=== PATIENT | female | born 1935 | race Caucasian/White ===

== ENCOUNTER → 2016-09-03 | Outpatient (CLI) | payer MEDICARE ==
[2015-08-16 11:15] VITALS: BP 146/67
[~2016-09-03] MED LIST: ALPR1TAB2 PO; CALC3.7S2 NS; DILT60TA PO; DOXY100T PO; ESCI10TA PO; ESTR1TAB15 PO; FLUT1DIS3 INH; FURO40TA4 PO; HYDR-2666 PO; IPRA4AER IH; POTA10TA31 PO; PRED20TA PO; PREG100C PO; PREG50CA PO; PROAIR HFA8.5 GM IH; ROPI1TAB PO; SALM50DI IH
--- NOTE | 2016-09-03 14:30 | RAD ---
Metastatic skeletal survey, 09/03/2016: History: Chronic kidney disease Multiple images of the bony skeleton were obtained with the following findings delineated: 1. There is generalized bony demineralization. 2. A PA view of the chest reveals no rib fracture or destructive lesion. There are scattered parenchymal scars in the lungs. There is aortic atherosclerosis. 2. A lateral view of the skull shows no calvarial abnormality. The patient is edentulous. 3. AP and lateral views of the cervical spine demonstrate moderate degenerative disc disease and spurring at C4-5, C5-6 and C6-7. There are scattered degenerative changes involving the facet joints. No fracture or destructive bony lesion is seen. 4. AP and lateral views of the thoracic and lumbar spine demonstrate mild scattered spurs. There is a minimal scoliosis. No fracture or destructive bony lesion is seen. 5. An AP view of the pelvis reveals no destructive lesion. Mild spurring is present at the hip joints. 6. AP views of both humeri, forearms, femurs and lower legs reveal no fracture or destructive lesion. IMPRESSION: 1. Demineralization. 2. Scattered degenerative changes in the spine. 3. No destructive bony lesion is identified.
== END | disposition home or self-care (01) ==
LOC: RAD 10:20
PROVIDERS: ATTEND Internal Medicine Hematology & Oncology
DX: N18.9 Chronic kidney disease, unspecified (principal); R77.8 Other specified abnormalities of plasma proteins
CPT/HCPCS: 77075

== ENCOUNTER 2016-09-11 08:27 | Outpatient (CLI) | payer MEDICARE ==
[~2016-09-11] VITALS: Ht 170.2 cm; Wt 55.3 kg
[2016-09-11] VITALS (11 sets, daily range): BP systolic 84–142; BP diastolic 46–67
[2016-09-11] MEDS ORDERED: ROPI2TAB4 PO (08:58)
[2016-09-11] MEDS ORDERED: ERGO400T2 PO (08:58)
[2016-09-11] MEDS ORDERED: SUCR1TAB PO (08:58)
[2016-09-11] MEDS ORDERED: PREG75CA PO (08:58)
[2016-09-11] MEDS ORDERED: CYAN2500 SL (08:58)
[2016-09-11] MEDS ORDERED: VENL25TA PO (08:58)
[2016-09-11] MEDS ORDERED: VENTOLIN HFA18 GM INH (08:58)
[2016-09-11] MEDS ORDERED: SALM50DI IH (08:58)
[2016-09-11] MEDS ORDERED: POTA10CA PO (08:58)
[2016-09-11] MEDS ORDERED: MAGN250T5 PO (08:58)
[2016-09-11] MEDS ORDERED: FURO20TA3 PO (08:58)
[2016-09-11] MEDS ORDERED: IPRA4AER IH (08:58)
[2016-09-11] MEDS ORDERED: TRAM50TA PO (08:58)
[2016-09-11] MEDS ORDERED: CALC200T19 PO (08:58)
[2016-09-11] MEDS ORDERED: DILT180C29 PO (08:58)
[2016-09-11 09:18] LABS: BASO # 0.1 x10^3/uL (0.0-0.2); BASO % 1 % (0-3); EOS % 6 % (0-3); HEMATOCRIT 31.2 % (36.0-47.0); HEMOGLOBIN 10.7 g/dL (12.0-15.5); LYMPH # 1.8 x10^3/uL (1.0-4.8); LYMPH % 31 % (24-48); MEAN CORPUSCULAR HEMOGLOBIN 32 pg (25-35); MEAN CORPUSCULAR HGB CONC 34 g/dL (31-37); MEAN CORPUSCULAR VOLUME 95 fL (79-100); MONO % 12 % (0-9); NEUT % 50 % (31-73); PLATELET COUNT 134 x10^3/uL (140-400); RED BLOOD COUNT 3.31 x10^6/uL (3.50-5.40); RED CELL DISTRIBUTION WIDTH 15.5 % (11.5-14.5); WHITE BLOOD COUNT 5.9 x10^3/uL (4.0-11.0)
[2016-09-11 09:27] LABS: INR 1.2 (0.8-1.1); PROTHROMBIN TIME PATIENT 14.6 SEC (11.7-14.0)
[2016-09-11] MEDS ORDERED: LIDOCAINE 1% / SOD BICARB 8.4% 20 ML VIAL. IJ ONE ×2 (09:54→10:45)
[2016-09-11] MEDS ORDERED: MIDAZOLAM HCL/PF 5 MG/5 ML VIAL ONE (10:17)
[2016-09-11] MEDS ORDERED: FENTANYL PF 250 MCG/5 ML VIAL. ONE (10:17)
[2016-09-11] MEDS ORDERED: MIDAZOLAM HCL/PF 5 MG/5 ML VIAL IV ONE (10:45)
[2016-09-11] MEDS ORDERED: FENTANYL PF 250 MCG/5 ML VIAL. IV ONE (10:45)
--- NOTE | 2016-09-11 11:01 | PDOC ---
MODERATE SEDATION ASSESSMENT RISKS/ALTERNATIVES Risks/Alternatives Risks and alternatives of this type of sedation and procedure discussed with: RISK/ALTERNATIVES: Patient H & P ON CHART H & P H & P on chart and reviewed for co-morbid conditions and appropriate labs. H&P ON CHART: Yes STATUS PREG STATUS ASSESSED: N/A MEDS/ALLERGIES REVIEWED Meds/Allergies Reviewed Medications and Allergies including time and route of recently administered narcotics and sedatives. MEDS/ALLERGIES REVIEWED: Yes ASA RATING ASA RATING: II AIRWAY ASSESSMENT Airway Assessment Airway patency, oral function limitations, presence of caps, crowns, dentures, partials, and ability to extend neck assessed. AIRWAY ASSESSMENT: Yes MALLAMPATI SCORE MALLAMPATI SCORE: II PRE-SEDATION ASSESSMENT PRE-SEDATION ASSESSMENT: Yes ROSI OBRIEN MD Sep 11, 2016 11:01
--- NOTE | 2016-09-11 11:03 | PDOC1 ---
History and Physical Date of Procedure Date of Admission 09/11/[address] guided bone marrow asp/bx Indication Indication Abnormal serum protein electrophoresis, with elevated light chains Past Medical History Past Medical History See Nursing Pre procedure PMH Past Surgical History Past Surgical History See Nursing Pre Procedure PSH Current Medications Current Medications Current Medications Lidocaine/Sodium Bicarbonate (Buffered Lidocaine 1%) 20 ml STK-MED ONCE IJ ; Start 09/11/16 at 09:54; Stop 09/11/16 at 09:55; Status DC Midazolam HCl (Versed) 5 mg STK-MED ONCE .ROUTE ; Start 09/11/16 at 10:17; Stop 09/11/16 at 10:18; Status DC Fentanyl Citrate (Fentanyl 5ml Vial) 250 mcg STK-MED ONCE .ROUTE ; Start at 10:17; Stop 09/11/16 at 10:18; Status DC Lidocaine/Sodium Bicarbonate (Buffered Lidocaine 1%) 20 ml 1X ONCE IJ Last administered on 09/11/16t 10:45; Start 09/11/16 at 10:45; Stop 09/11/16 at 10:46 ; Status DC Midazolam HCl (Versed) 5 mg 1X ONCE IV Last administered on 09/11/16t 10:51; Start 09/11/16 at 10:45; Stop 09/11/16 at 10:46; Status DC Fentanyl Citrate (Fentanyl 5ml Vial) 250 mcg 1X ONCE IV Last administered on t 10:50; Start 09/11/16 at 10:45; Stop 09/11/16 at 10:46; Status DC Active Scripts Active Reported Potassium Chloride 10 Meq Capsule.er 10 Meq PO DAILY Venlafaxine Hcl 25 Mg Tablet 25 Mg PO DAILY Tramadol Hcl 50 Mg Tablet 50 Mg PO Q6H PRN Sucralfate 1 Gm Tablet 1 Gm PO DAILY Serevent Diskus (Salmeterol Xinafoate) 50 Mcg Disk.w.dev 50 Mcg IH Q12HR Ropinirole Hcl 2 Mg Tablet 2 Mg PO DAILY Lyrica (Pregabalin) 75 Mg Capsule 75 Mg PO BID Magnesium (Magnesium Oxide) 250 Mg Tablet 250 Mg PO DAILY Combivent Respimat Inhal (Ipratropium/Albuterol Sulfate) 4 Gm Aer.w.adap 2 Inh IH TID Furosemide 20 Mg Tablet 20 Mg PO DAILY Vitamin D2 (Ergocalciferol (Vitamin D2)) 400 Unit Tablet 400 Unit PO DAILY Diltiazem 24HR Cd (Diltiazem Hcl) 180 Mg Cap.er.24h 180 Mg PO DAILY B-12 (Cyanocobalamin (Vitamin B-12)) 2,500 Mcg Lozenge 2,500 Mcg SL DAILY Calcitrate (Calcium Citrate) 200 Mg Tablet 950 Mg PO DAILY Ventolin Hfa Inhaler (Albuterol Sulfate) 18 Gm Hfa.aer.ad 2 Puff INH QID Allergies Allergies: Coded Allergies: No Known Drug Allergies (Unverified , 11/29/14) Physical Exam Vital Signs Vital Signs Date Time Temp Pulse Resp B/P Pulse Ox O2 Delivery O2 Flow Rate FiO2 09/11/16 10:51 69 8 98 Nasal Cannula 2.0 09/11/16 09:18 97.8 142/67 97.8 Lungs: Clear to auscultation Heart: Regular rate Psych/Mental Status: Mental status NL Assessment Assessment Abnl SPEP with elevated light chains Problems: Plan Plan CT guided bone marrow asp/bx ROSI OBRIEN MD Sep 11, 2016 11:03
--- NOTE | 2016-09-11 11:06 | PDOC ---
Exam Manager Transportation Planning Manager Transportation Planning Nancy Podiatric Assistant Podiatric Assistant Lashawn Sutherland Pre-Procedure Diagnosis Pre-Procedure Diagnosis 80 YO female with abnormal SPEP, with elevated light chains Post-Procedure Diagnosis Post-Procedure Diagnosis Same Procedure Performed Procedure Performed CT guided bone marrow aspirate/bx Type of Anesthesia Type of Anesthesia Local + Mod sedation Estimated Blood Loss EBL: Minimal Specimens Specimans 6 cc bone marrow aspirate + 1 11G core bx-----to heme-path Condition of Patient Condition of Patient Stable. Sedated. No apparent complication. Disposition Disposition Home from [facility] post recovery, if no problems. F/u with Dr Echevarria. Full report to follow. ROSI OBRIEN MD Sep 11, 2016 11:06
--- NOTE | 2016-09-12 06:21 | RAD ---
CT-guided power drill assisted bone marrow aspiration and biopsy Indication: 80-year-old female with abnormal serum protein electrophoresis, with elevated light chains. CT-guided bone marrow aspirate/biopsy has been requested by hematology-oncology. Anesthesia: 17 minutes moderate sedation was provided utilizing a total of 2.5 mg Versed and 125 mcg fentanyl, IV. The patient was appropriately monitored by a qualified independent observer throughout the time of moderate sedation. Procedure: Informed consent was obtained from the patient. She was placed prone on the CT scanner. Preliminary noncontrast CT images were obtained through pelvis. A left posterior skin site suitable for CT-guided bone marrow aspirate/biopsy from posterior left iliac bone was selected and marked. That area was prepped and draped in the usual sterile fashion. Conscious sedation was provided with IV Versed and fentanyl. Using aseptic technique, local anesthesia, and CT guidance, and the kontoblick power long haul truck driver, successful percutaneous entry was achieved through posterior cortex of left iliac bone. Approximately 6 cc of bone marrow was promptly aspirated, and was submitted to hematology personnel in the CT suite. Using CT guidance, the [employer] power long haul truck driver was then utilized to obtain a single, 11-gauge core biopsy sample from marrow cavity of left iliac bone. Touch preparations were made from the core biopsy sample, which was then submitted to pathology in formalin. A sterile dressing was applied over the biopsy skin puncture site. Patient tolerated the procedure well without apparent complication. Impression: Successful, uneventful CT-guided bone marrow aspirate and biopsy, utilizing the kontob[employer] power long haul truck driver biopsy system, as described. PQRS compliance statement: One or more of the following individualized dose reduction techniques were utilized for this CT procedure: 1. Automated exposure control. 2. Adjustment of MA and/or KV according to patient size. 3. Iterative reconstruction technique.
== END 2016-09-11 13:21 | disposition home or self-care (01) ==
LOC: INTRAD 08:27
PROVIDERS: ATTEND Internal Medicine Hematology & Oncology
DX: R76.8 Other specified abnormal immunological findings in serum (principal); J44.9 Chronic obstructive pulmonary disease, unspecified; J45.909 Unspecified asthma, uncomplicated; F32.9 Major depressive disorder, single episode, unspecified; F41.9 Anxiety disorder, unspecified; Z90.710 Acquired absence of both cervix and uterus; Z98.890 Other specified postprocedural states
CPT/HCPCS: 36415; 38221; 77012; 85027; 85610; 88184; 88185; 88237; G0364; J2250; J3010

== ENCOUNTER 2016-10-07 19:17 | Inpatient (IN) | payer MEDICARE ==
[~2016-10-07] VITALS: Ht 167.6 cm; Wt 54.0 kg
[~2016-10-07 19:17] MED LIST changes: +CALC200T19 PO; +CYAN2500 SL; +DILT180C29 PO; +ERGO400T2 PO; +FURO20TA3 PO; +MAGN250T5 PO; +POTA10CA PO; +PREG75CA PO; +ROPI2TAB4 PO; +SUCR1TAB PO; +TRAM50TA PO; +VENL25TA PO; +VENTOLIN HFA18 GM INH
--- NOTE | 2016-10-07 19:46 | ED.ADGEN ---
Past Medical History Past Medical History: A-Fib, COPD, Heart Disease, Hypertension, Other Additional Past Medical Histor: Restless leg, chronic bone pain, sleep disorder Past Surgical History: Appendectomy, Cervical Fusion, Hysterectomy, Other Additional Past Surgical Histo: Pancreatic tumor, bowel Alcohol Use: None Drug Use: None Adult General Chief Complaint Chief Complaint: SHORTNESS OF BREATH HPI HPI Patient is a 80 year old female presents emergency department by EMS. She complains of 3-4 hour history of substernal chest pain. She reports it was initially right center of her chest is now radiating more towards the left. She describes it as a sharp and achy" pain. She reports that she has had associated nausea and dyspnea. She denies any diaphoresis. However, she does state that it feels summer to her previous heart attack in 1991. She tells me multiple members of her immediate family have suffered from heart attacks. She did take 3 nitroglycerin earlier this afternoon which helped alleviate her pain temporarily. She denies any other recent illness, cough, fever, chills. She did receive 325 mg of aspirin from EMS prior to arrival. Review of Systems Review of Systems Constitutional: Denies fever or chills. [] Eyes: Denies change in visual acuity. [] HENT: Denies nasal congestion or sore throat. [] Respiratory: Denies cough or shortness of breath. [] Cardiovascular: Denies chest pain or edema. [] GI: Denies abdominal pain, nausea, vomiting, bloody stools or diarrhea. [] : Denies dysuria. [] Musculoskeletal: Denies back pain or joint pain. [] Integument: Denies rash. [] Neurologic: Denies headache, focal weakness or sensory changes. [] Endocrine: Denies polyuria or polydipsia. [] Lymphatic: Denies swollen glands. [] Psychiatric: Denies depression or anxiety. [] Allergies Allergies Allergies Coded Allergies Type Severity Reaction Last Updated Verified No Known Drug Allergies 11/29/14 No Physical Exam Physical Exam Constitutional: Well developed, well nourished, no acute distress, non-toxic appearance. [] HENT: Normocephalic, atraumatic, bilateral external ears normal, oropharynx moist, no oral exudates, nose normal. [] Eyes: PERRLA, EOMI, conjunctiva normal, no discharge. [] Neck: Normal range of motion, no tenderness, supple, no stridor. [] Cardiovascular:Heart rate regular rhythm, no murmur [] Lungs & Thorax: Bilateral breath sounds clear to auscultation [] Abdomen: Bowel sounds normal, soft, no tenderness, no masses, no pulsatile masses. [] Skin: Warm, dry, no erythema, no rash. [] Back: No tenderness, no CVA tenderness. [] Extremities: No tenderness, no cyanosis, no clubbing, ROM intact, no edema. [] Neurologic: Alert and oriented X 3, normal motor function, normal sensory function, no focal deficits noted. [] Psychologic: Affect normal, judgement normal, mood normal. [] Current Patient Data Vital Signs Vital Signs Date Time Temp Pulse Resp B/P Pulse Ox O2 Delivery O2 Flow Rate FiO2 10/07/16 19:21 97.7 76 24 144/67 98 Room Air 97.7 Lab Values Laboratory Tests Test 10/07/16 19:50 White Blood Count 7.6x10^3/uL (4.0-11.0) Red Blood Count 3.14x10^6/uL (3.50-5.40) L Hemoglobin 9.9g/dL (12.0-15.5) L Hematocrit 29.6% (36.0-47.0) L Mean Corpuscular Volume 94fL (79-100) Mean Corpuscular Hemoglobin 32pg (25-35) Mean Corpuscular Hemoglobin Concent 33g/dL (31-37) Red Cell Distribution Width 15.7% (11.5-14.5) H Platelet Count 141x10^3/uL (140-400) Neutrophils (%) (Auto) 47% (31-73) Lymphocytes (%) (Auto) 31% (24-48) Monocytes (%) (Auto) 16% (0-9) H Eosinophils (%) (Auto) 6% (0-3) H Basophils (%) (Auto) 0% (0-3) Neutrophils # (Auto) 3.6x10^3uL (1.8-7.7) Lymphocytes # (Auto) 2.3x10^3/uL (1.0-4.8) Monocytes # (Auto) 1.2x10^3/uL (0.0-1.1) H Eosinophils # (Auto) 0.5x10^3/uL (0.0-0.7) Basophils # (Auto) 0.0x10^3/uL (0.0-0.2) Prothrombin Time 15.0SEC (11.7-14.0) H Prothrombin Time INR 1.3 (0.8-1.1) H PTT 33SEC (24-38) Sodium Level 139mmol/L (136-145) Potassium Level 3.8mmol/L (3.5-5.1) Chloride Level 100mmol/L (98-107) Carbon Dioxide Level 25mmol/L (21-32) Anion Gap 14 (6-14) Blood Urea Nitrogen 43mg/dL (7-20) H Creatinine 1.3mg/dL (0.6-1.0) H Estimated GFR (Cockcroft-Gault) 39.6 Glucose Level 132mg/dL (70-99) H Calcium Level 8.5mg/dL (8.5-10.1) Total Bilirubin 0.3mg/dL (0.2-1.0) Direct Bilirubin 0.1mg/dL (0.0-0.2) Aspartate Amino Transferase (AST) 23U/L (15-37) Alanine Aminotransferase (ALT) 29U/L (14-59) Alkaline Phosphatase 40U/L (46-116) L Troponin I Quantitative < 0.017ng/mL (0.000-0.055) Total Protein 8.3g/dL (6.4-8.2) H Albumin 2.5g/dL (3.4-5.0) L Lipase 53U/L (73-393) L Laboratory Tests 10/07/16 19:50 Laboratory Tests 10/07/16 19:50 EKG EKG EKG interpreted by me, normal sinus rhythm, 75 beats for minute, no ST segment elevation, normal axis. [] Radiology/Procedures Radiology/Procedures Chest x-ray interpreted by me, no acute cardiopulmonary process. [] Course & Med Decision Making Course & Med Decision Making Pertinent Labs and Imaging studies reviewed. (See chart for details) Fortunately, the patient's pain is usually controlled now. Her workup is reassuring. However, given her concerning story and significant risk factors a do believe she will benefit for admission to the hospital for cardiac consultation and serial enzymes. [] Dragon Disclaimer Dragon Disclaimer This electronic medical record was generated, in whole or in part, using a voice recognition dictation system. LEONARDO SARKAR MD Oct 07, 2016 19:46
[2016-10-07 20:17] LABS: BASO % 0 % (0-3); EOS % 6 % (0-3); HEMATOCRIT 29.6 % (36.0-47.0); HEMOGLOBIN 9.9 g/dL (12.0-15.5); LYMPH # 2.3 x10^3/uL (1.0-4.8); LYMPH % 31 % (24-48); MEAN CORPUSCULAR HEMOGLOBIN 32 pg (25-35); MEAN CORPUSCULAR HGB CONC 33 g/dL (31-37); MEAN CORPUSCULAR VOLUME 94 fL (79-100); MONO % 16 % (0-9); NEUT % 47 % (31-73); PLATELET COUNT 141 x10^3/uL (140-400); RED BLOOD COUNT 3.14 x10^6/uL (3.50-5.40); RED CELL DISTRIBUTION WIDTH 15.7 % (11.5-14.5); WHITE BLOOD COUNT 7.6 x10^3/uL (4.0-11.0)
[2016-10-07 20:18] LABS: CALCIUM 8.5 mg/dL (8.5-10.1); CREATININE 1.3 mg/dL (0.6-1.0); GFR 39.6; POTASSIUM 3.8 mmol/L (3.5-5.1)
[2016-10-07 20:24] LABS: ALBUMIN 2.5 g/dL (3.4-5.0); DIRECT BILIRUBIN 0.1 mg/dL (0.0-0.2); TOTAL BILIRUBIN 0.3 mg/dL (0.2-1.0); TOTAL PROTEIN 8.3 g/dL (6.4-8.2)
[2016-10-07 20:25] LABS: INR 1.3 (0.8-1.1)
[2016-10-07] MEDS ORDERED: NITROGLYCERIN SUBLINGUAL 0.4 MG BOTTLE OF 25. SL PRN (21:00)
[2016-10-07] MEDS ORDERED: IPRATRPIUM/ALBUTEROL 0.5/2.5MG 3 ML NEBU. NEB PRN (21:00)
[2016-10-07] MEDS ORDERED: ACETAMINOPHEN 325 MG TABLET. PO PRN (21:00)
[2016-10-07] MEDS ORDERED: FENTANYL PF 100 MCG/2 ML VIAL. IV PRN (21:00)
[2016-10-07] MEDS ORDERED: ONDANSETRON PF 4 MG/2 ML VIAL. IV PRN (21:00)
[2016-10-07] MEDS: IV NORMAL SALINE 1000ML BAG 1,000 ML IV SCH (21:30)
[2016-10-07 22:00] VITALS: BP 126/74
[2016-10-08] VITALS: BP 153/59
--- NOTE | 2016-10-08 02:15 | ACF ---
Admission Forms Criteria GENERAL ADMISSION CRITERIA (Place 'X' for any and all applicable criteria): Admission is indicated for ANY ONE of the following: [ ]I. Hemodynamic instability as indicated by ANY ONE of the following(1)(2) (3)(4)(5): [ ]a) Vital sign abnormality not readily corrected by appropriate treatment within 12 to 24 hours indicated by ANY ONE of the following: [ ]i) Hypotension [ ]ii) Symptomatic Tachycardia unresponsive to treatment (eg , analgesia, fluids, sedation as indicated) [ ]iii) Orthostatic vital sign changes unresponsive to treatment (eg, fluids) [ ]b) Vital sign abnormality that is severe indicated by ANY ONE of the following: [ ]i) Inadequate perfusion indicated by ANY ONE of the following: [ ]1) Lactic acidosis (greater than 2 mmol/L) [ ]2) New abnormal capillary refill (greater than 3 seconds) [ ]3) Other metabolic acidosis (arterial pH less than 7.35) not otherwise explained [ ]4) Reduced urine output [ ]5) Altered mental status [ ]6) Myocardial Ischemia [ ]v) Mean arterial pressure[A] less than 60 mm Hg [ ]vi) Mean arterial pressure[A] less than 70 mm Hg after 30 minutes of appropriate treatment (eg, fluid resuscitation) [ ]vii) IV inotropic or vasopressor medication required to maintain adequate blood pressure or perfusion [ ]viii) Sustained heart rate greater than 120 beats per minute in adult or child 6 years or older[B]] [ ]II. Hypertension requiring inpatient treatment as indicated by ANY ONE of the following(6)(7)(8): [ ]a) SBP greater than 220 mm Hg or DBP greater than 120 mm Hg despite treatment [ ]b) SBP greater than 140 mm Hg or DBP greater than 100 mm Hg with evidence of acute end organ damage as indicated by ANY ONE of the following: [ ]i) Encephalopathy [ ]ii) Acute renal failure as indicated by new onset of ANY ONE of the following(9)(10)(11)(12)(13): [ ]1) A 3-fold rise in serum creatinine from baseline [ ]2) Serum creatinine greater than 4 mg/dL ( 354 micromoles/L) with acute rise greater than 0.5 mg/dL (44.2 micromoles/L) [ ]3) Reduction of more than 75% in estimated glomerular filtration rate from baseline [ ]4) Estimated glomerular filtration rate less than 35 mL/min/1.73m2 (0.59 mL/sec/1.73m2) in child up to 18 years of age [ ]5) Cessation of urine output indicated by ALL of the following: [ ]A. Adequate volume status [ ]B. Inadequate urine output as indicated by ANY ONE of the following: [ ]a. Urine output less than 0.3 mL/kg/hr for 24 hours [ ]b. Anuria (urine output less than 0.1 mL/kg/hr) for 12 hours [ ]iii) Aortic dissection [ ]iv) Myocardial ischemia [ ]v) Left ventricular heart failure [ ]vi) Retinal hemorrhage [ ]vii) Other significant finding [ ]c) Hypertension in child requiring inpatient treatment as indicated by ALL of the following(14)(15)(16): [ ]i) Outpatient treatment not effective, not available, or not appropriate [ ]ii) SBP or DBP greater than 95th percentile for age [ ]iii) Evidence of acute end organ damage as indicated by ANY ONE of the following: [ ]1) Altered mental status [ ]2) Acute renal failure as indicated by new onset of ANY ONE of the following(9)(10)(11)(12)(13): [ ]A. A 3-fold rise in serum creatinine from baseline [ ]B. Serum creatinine greater than 4 mg/dL (354 micromoles/L) with acute rise greater than 0.5 mg/dL (44.2 micromoles/L) [ ]C. Reduction of more than 75% in estimated glomerular filtration rate from baseline [ ]D. Estimated glomerular filtration rate less than 35 mL/min/1.73m2 (0.59 mL/sec/1.73m2)in child up to 18 years of age [ ]E. Cessation of urine output indicated by ALL of the following: [ ]a. Adequate volume status [ ]b. Inadequate urine output as indicated by ANY ONE of the following: [ ]1) Urine output less than 0.3 mL/kg/hr for 24 hours [ ]2) Anuria (urine output less than 0.1 mL/kg/hr) for 12 hours [ ]3) Severe headache [ ]4) Visual disturbance [ ]5) Retinal hemorrhage [ ]6) Other significant finding [ ]III. Acute cardiac or peripheral ischemia as indicated by ANY ONE of the following: [ ]a) Acute coronary syndrome(17)(18) [ ]b) Acute peripheral ischemia (eg, pulseless, cool, mottled, or cyanotic extremity)(19) [ ]IV. Cardiac arrhythmias or findings of immediate concern indicated by ANY ONE of the following(20)(21): [ ]a) Heart rhythms that are inherently dangerous or unstable indicated by ANY ONE of the following(22)(23)(24): [ ]i) Resuscitated ventricular fibrillation or cardiac arrest [ ]ii) Ventricular escape rhythm [ ]iii) Sustained ventricular tachycardia (30 seconds or more of ventricular rhythm at greater than 100 beats per minute) [ ]iv) Nonsustained ventricular tachycardia and ANY ONE of the following: [ ]1) Suspected cardiac ischemia as cause or consequence of ventricular tachycardia [ ]2) In setting of acute myocarditis [ ]b) Unstable cardiac conduction defects indicated by ANY ONE of the following(24)(25)(26): [ ]i) Type II second-degree atrioventricular block [ ]ii) Third-degree atrioventricular block [ ]iii) New-onset left bundle branch block with suspected myocardial ischemia [ ]c) Any heart rhythm and ANY ONE of the following(22)(23)(27)(28)( 29): [ ] i) Continuous long-term ECG monitoring needed (eg, initiation of drug requiring monitoring for more than 24 hours) [ ] ii) Patient has automatic implanted cardioverter defibrillator that is repeatedly firing, malfunctioning, or in need of immediate adjustment of settings beyond the scope of ambulatory or observation care. [ ]d) Heart rhythms of concern due to ANY ONE of the following: [ ]i) Hypotension [ ]ii) Respiratory distress [ ]iii) Association with other significant symptoms (eg, bradycardia with syncope or ongoing dizziness, supraventricular tachycardia with chest pain) (27)(28) (30) [ ] V. Severe heart failure as indicated by ANY ONE of the following ( 31)(32): [ ]a) Respiratory distress [ ]b) Hypotension [ ]c) Anasarca (refractory to outpatient therapy) [ ]d) Cardiac arrhythmias of immediate concern [ ]e) Myocardial ischemia [ ]. Respiratory abnormalities, including ANY ONE of the following(33)(34) (35)(36): [ ]a) Respiratory rate greater than 30 breaths per minute unresponsive to treatment [A] [ ]b) New saturation of arterial oxygen less than 90% [ ]c) New partial pressure of carbon dioxide greater than 44 mm Hg ( 5.9 kPa) [ ]d) Supplemental oxygen or respiratory treatments needed that are new or not performable at other levels of care [ ]e) New-onset cyanosis [ ]f) Inability to protect airway [ ]g) Chronic lung disease with severe deterioration (not responsive to emergency and observation care treatment as appropriate) as indicated by ANY ONE of the following(34)(36 ): [ ]i) SaO2 5% below baseline in patient with chronic hypoxemia [ ]ii) New requirement for supplemental oxygen to keep SaO2 at baseline or acceptable level [ ]iii) Required supplemental oxygen performable only in acute inpatient setting [ ]iv) Severe airflow or ventilation abnormalities [ ]v) Previously mobile patient unable to walk between rooms [ ]vi Inability to eat or sleep due to dyspnea [ ]vii) Rapid rate of exacerbation onset [ ]viii) Altered mental status ]VII. Severe airflow or ventilation abnormalities (not responsive to emergency and observation care treatment as appropriate) as indicated by ANY ONE of the following(33)(34)(35)(37): [ ]a) PCO2 greater than 42 mm Hg (5.6 kPa) and pH less than 7.35 (new ) [ ]b) Documented PCO2 increased more than 5 mm Hg (0.7 kPa) from disease baseline [ ]c) Airflow measurements [B] less than 60% of previous best or predicted (eg, peak expiratory flow rate less than 300 L/minute) despite intensive emergent treatment [C] [ ]d) Required respiratory treatments that are performable only in acute inpatient setting [ ]VIII. Impending or actual respiratory arrest ( Also use Respiratory Failure GRG for severe respiratory disease and long-term mechanical ventilation patients) [ ]IX. Neurologic abnormalities, including ANY ONE of the following: [ ]a) New findings that suggest ANY ONE of the following: [ ]i) BUSINESS CONTINUITY PLANNING DIRECTOR infection(38) [ ]ii) Cerebral bleeding, ischemia, or vasospasm(39)(40) [ ]iii) Increased intracranial pressure, hydrocephalus, or cerebral edema(41)(42)(43) [ ]iv) Spinal cord injury(44) [ ]b) Uncontrolled seizures(45) [ ]c) New-onset coma (eg, Frankie coma scale score less than 9) or unexplained abnormal mental status (eg, Frankie coma scale score less than 14) [D](41)(46)(47) [ ]X. New-onset severe neurologic findings requiring inpatient care; examples include(42)(48)(49): [ ]a) Papilledema [ ]b) Cerebral edema [ ]c) Mass effect on CT scan [ ]XI. Suspected acute intra-abdominal process with peritoneal signs, abdominal mass, or similar findings (50)(51)(52) [ ]XII. Severe physiologic disorder remaining after emergency or observation level care (as appropriate) as indicated by ANY ONE of the following (53): [ ]a) Significant dehydration [ ]b) Diabetic ketoacidosis [ ]c) Hyperglycemic hyperosmolar state (eg, osmolality greater than 320 mOsm/kg (mmol/kg) [ ]d) Hypoglycemia [ ]e) Other (new) acid-base disorder with pH less than 7.35 or greater than 7.5(54) [ ]f) Thyroid storm (55) [ ]g) Myxedema coma (55) [ ]XIII. Abdominal abnormalities with ANY ONE of the following(56)(57): [ ]a) Absent bowel sounds with complete ileus [ ]b) Signs of intestinal obstruction or peritonitis [E] [ ]c) Nausea and vomiting that cannot be controlled with outpatient or observation care [ ]XIV. Acute renal failure as indicated by new onset of ANY ONE of the following(9)(10)(11)(12)(13): [ ]a) A 3-fold rise in serum creatinine from baseline [ ]b) Serum creatinine greater than 4 mg/dL (354 micromoles/L) with acute rise greater than 0.5 mg/dL (44.2 micromoles/L) [ ]c) Reduction of more than 75% in estimated glomerular filtration rate from baseline [ ]d) Estimated glomerular filtration rate less than 35 mL/min/ 1.73m2 (0.59 mL/sec/1.73m2) in child up to 18 years of age [ ]e) Cessation of urine output indicated by ALL of the following: [ ]i) Adequate volume status [ ]ii) Inadequate urine output as indicated by ANY ONE of the following: [ ]1) Urine output less than 0.3 mL/kg/hr for 24 hours [ ]2) Anuria (urine output less than 0.1 mL/kg/hr) for 12 hours [ ]XV. Significant uremic complications as indicated by ANY ONE of the following(58)(59)(60): [ ]a) Outpatient therapy is ineffective or not feasible for ANY ONE of the following: [ ]i) Severe heart failure [ ]ii) Severehypertension [ ]iii) Pleural effusion [ ]iv) Pericarditis or pericardial effusion [ ]b) Cardiac arrhythmias of immediate concern [ ]c) Intractable nausea or vomiting [ ]d) Recurrent seizures [ ]e) Encephalopathy [ ]f) Bleeding abnormalities (eg, platelet dysfunction) with active (eg, gastrointestinal) bleeding [ ]g) Dialysis indicated before long-term access or ambulatory arrangements can be made [ ]h) Significant metabolic or electrolyte abnormalities (eg, severe acidosis or hyperkalemia) [ ]XVI. High fever or other high-risk infection situation as indicated by ANY ONE of the following(61)(62)(63)(64): [ ]a) Outpatient and observation care antimicrobial treatment unavailable, not effective, or not appropriate [ ]b) Documented bacteremia [ ]c) Temperature greater than 40.5 degrees C (104.9 degrees F) ( oral) [ ]d) Temperature greater than 39.5 degrees C (103.1 degrees F) ( oral) or less than 36 degrees C (96.8 degrees F) (rectal) that does not respond to e treatment and observation care [ ] XVII. Temperature less than 95 degrees F (35 degrees C)(rectal)(65) [ ] XVIII. Severe nutritional abnormalities as indicated by ALL of the following (66)(67): [ ]a) Inability to tolerate or establish sufficient oral or other enteral nutrition in outpatient setting [ ]b) Parenteral nutrition regimen need that must be implemented on inpatient basis [ ] XIX. Severe electrolyte abnormalities indicated by ALL of the following(68) (69)(70): [ ]a) Electrolytes and associated findings are not as expected for patient baseline or acceptable treatment effects. [ ]b) Severe abnormalities indicated by ANY ONE of the following: [ ]i) Sodium less than 130 mEq/L (mmol/L) (new) [ ]ii)Sodium less than 135 mEq/L (mmol/L) with ANY ONE of the following: [ ]1) Uncorrectable (to near normal or chronic baseline) after trial of outpatient and emergency treatment [ ]2) Altered mental status [ ]3) Seizures [ ]4) Severe medical etiology requiring inpatient management (eg, heart failure, hypovolemia) [ ]iii) Sodium greater than 155 mEq/L (mmol/L) [ ]iv) Sodium greater than 150 mEq/L (mmol/L) with ANY ONE of the following: [ ]1) Uncorrectable (to near normal or chronic baseline) with outpatient and emergency treatment [ ]2) Altered mental status [ ]3) Seizures [ ]4) Severe medical etiology (eg, hypovolemia, diabetes insipidus) [ ]v) Potassium less than 2.5 mEq/L (mmol/L) despite outpatient and emergency treatment [ ]vi) Potassium less than 3 mEq/L (mmol/L) with ANY ONE of the following: [ ]1) Weakness [ ]2) Cardiac abnormality (eg, arrhythmia, conduction disturbance) [ ]3) Cardiac ischemia [ ]4) Ileus [ ]5) Ongoing medical cause requiring inpatient management (eg, acute renal wasting or SIADH) [ ]6) Other severe symptoms [ ]vii) Potassium greater than 6.5 mEq/L (mmol/L) [ ]viii) Potassium greater than 5 mEq/L (mmol/L) with ANY ONE of the following: [ ]1) Uncorrectable (to near normal or chronic baseline) with outpatient and emergency treatment [ ]2) Severe ECG findings [F] [ ]3) Acute worsening of renal failure (creatinine greater than 2.5 mg/dL (221 micromoles/L) or significant elevation for age and size) [ ]4) Severe weakness [ ]5) Severe medical etiology (eg, hemolysis, infection, drug overdose) [ ]ix) Calcium less than 7 mg/dL (1.75 mmol/L) despite outpatient and emergency treatment (72) [ ]x) Calcium less than 8 mg/dL (2 mmol/L) with significant symptoms or findings; examples include(72): [ ]1) Altered mental status [ ]2) Muscle spasms [ ]3) Seizures [ ]4) Breathing difficulty [ ]5) Cardiac abnormality (eg, arrhythmia or conduction disturbance) [ ]xi) Calcium greater than 14 mg/dL (3.5 mmol/L)(72) [ ]xii) Calcium greater than 12 mg/dL (3 mmol/L) with ANY ONE of the following(72): [ ]1) Uncorrectable (to near normal or chronic baseline) with outpatient and emergency treatment [ ]2) Significant dehydration or hypovolemia as indicated by ALL of the following(70)(73)(74): [ ]A. Not resolved with initial treatments [ ]B. Clinically significant dehydration as indicated by ANY ONE of the following: [ ]a. Vomiting refractory to outpatient treatment (ie, precluding oral rehydration) [ ]b. Inability to drink [ ]c. Hypernatremia or other electrolyte abnormality unable to be corrected with outpatient and emergency treatment [ ]d. Failure to remain hydrated with outpatient therapy [ ]e. Reduced urine output [ ]f. Hypotension [ ]g. Serious cause for dehydration requiring acute hospitalization (eg, bowel obstruction, increased intracranial pressure, infectious cause) [ ]h. Child with ANY ONE of the following(75): [ ]1) Severe abdominal tenderness [ ]2) Adequate care not available at home [ ]3) Severe dehydration ( greater than 9% loss of body weight) [ ]4) Significant symptoms or findings; examples include: [ ]A. Altered mental status [ ]B. Cardiac abnormality (eg, arrhythmia, conduction disturbance) [ ]C. Malignant etiology requiring inpatient treatment [ ]xiii) Phosphorus less than 1 mg/dL (0.32 mmol/L) [ ]xiv) Phosphorus less than 1.5 mg/dL (0.48 mmol/L) with ANY ONE of the following: [ ]1) Patient unresponsive to outpatient and emergency treatment [ ]2) Significant symptoms or findings; examples include: [ ]A. Weakness [ ]B. Altered mental status [ ]C. Breathing difficulty [ ]D. Seizures [ ]E. Rhabdomyolysis [ ]xv) Phosphorus greater than 10 mg/dL (3.2 mmol/L) [ ]xvi) Phosphorus greater than 4.5 mg/dL (1.45 mmol/L) (new) with ANY ONE of the following: [ ]1) Severe medical etiology (eg, crush injury, acute renal failure) [ ]2) Associated hypocalcemia with significant findings; examples include: [ ]A. Neurologic symptoms [ ]B. Altered mental status [ ]C. Muscle spasms [ ]D. Seizures [ ]E. Breathing difficulty [ ]F. Cardiac abnormality (eg, arrhythmia, conduction disturbance) [ ]xvii) Magnesium less than 1 mg/dL (0.41 mmol/L) [ ]xviii) Magnesium less than 1.5 mg/dL (0.62 mmol/L) with ANY ONE of the following: [ ]1) Patient unresponsive to outpatient and emergency treatment [ ]2) Associated hypocalcemia with significant findings; examples include: [ ]A. Altered mental status [ ]B. Muscle spasms [ ]C. Seizures [ ]D. Breathing difficulty [ ]E. Cardiac abnormality (eg, arrhythmia , conduction disturbance) [ ]3) Associated hypokalemia (potassium less than 3 mEq/L (mmol/L)) with risk of arrhythmia [ ]xix) Magnesium greater than 4 mEq/L (2 mmol/L) [ ]xx) Magnesium greater than 2.5 mEq/L (1.25 mmol/L) with significant symptoms or findings; examples include: [ ]1) Weakness [ ]2) Altered mental status [ ]3) Cardiac abnormality (eg, arrhythmia, conduction disturbance) [ ]4) Breathing difficulty [ ]5) Severe medical etiology (eg, renal failure, hypovolemia) [ ]xxi) Uric acid greater than 20 mg/dL (1190 micromoles/L)(76) [ ]xxii) Uric acid greater than 8 mg/dL (476 micromoles/L) with significant symptoms or findings of tumor lysis syndrome; examples include(76): [ ]1) Creatinine greater than 1.5 times upper limit of normal [ ]2) Cardiac abnormality (eg, arrhythmia, conduction disturbance) [ ]3) Seizure [ ]XX. Acute blood loss causing significant abnormality as indicated by ANY ONE of the following(77)(78): [ ]a) Hemoglobin less than 10 g/dL (100 g/L) (not baseline) [ ]b) Hematocrit less than 30% (0.30) (not baseline) [ ]c) Repeat hematocrit decreased more than 2% (0.02) [ ]d) Uncontrolled bleeding [ ]XXI. Severe anemia indicated by ANY ONE of the following(78)(79): [ ]a) Altered mental status [ ]b) Chest pain [ ]c) Exertional dyspnea [ ]d) Syncope [ ]e) Other findings suggesting inadequate perfusion [ ]f) Treatment with transfusion or volume replacement is ineffective at resolving ANY ONE of the following [G]: [ ]i) Tachycardia for age [ ]ii) Orthostatic vital sign changes as indicated by ANY ONE of the following(80): [ ]1) Fall in SBP of 20 mm Hg or more 1 to 3 minutes after patient sits or stands from recumbent position [ ]2) Fall in DBP of 10 mm Hg or more 1 to 3 minutes after patient sits or stands from recumbent position [ ]XXII. High-risk low platelet count as indicated by ANY ONE of the following( 81)(82): [ ]a) Severe or life-threatening bleeding (eg, intracranial, major gastrointestinal, or extensive mucosal bleeding), with any reduced platelet count [ ]b) Platelet count less than 20,000/mm3 (20 x109/L) with any active bleeding [ ]c) Platelet count less than 10,000/mm3 (10 x109/L) with minor purpura or petechiae [ ]d) Platelet count less than 5000/mm3 (5 x109/L) [ ]e) Low platelet count with hemolytic anemia [ ]XXIII. Disseminated intravascular coagulation(77)(83) [ ]XXIV. Severe adverse drug or systemic toxin reaction requiring inpatient treatment; examples include(84)(85): [ ]a) Serotonin syndrome(86) [ ]b) Neuroleptic malignant syndrome(86) [ ]c) Cholinergic syndrome with severe symptoms (eg, bronchorrhea, weakness, mental status changes, seizures) [ ]d) Sympathetic syndrome with severe symptoms (eg, seizures, mental status changes, cardiac dysrhythmias) [ ]e) Anticholinergic syndrome [ ]XXV. Severe pain requiring acute inpatient management as indicated by ALL of the following (87)(88)(89): [ ]a) Continuous or frequent (eg, every 2 to 4 hours) parenteral analgesics required [H] [ ]b) Rapid improvement expected from treatment or acute intervention (eg, surgery, anesthesia procedure) [ ]XXVI.Severe behavioral health issues judged unmanageable at a lower level of care (eg, residential) in a patient who is ANY ONE of the following(91) [ ]a) Acutely suicidal [ ]b) A danger to self (eg, self-mutilating or suicidal behavior) [ ]c) A danger to others (eg, assaultive or homicidal behavior) [ ]d) Incapacitated because of grave disability (eg, inability to provide for self at lower level of care) (92) [X]XXVII. Inpatient monitoring needed; examples include(1)(3)(87)(93)(94)(95)(96 ): [ ]a) Vital signs, neurologic signs, or vascular checks more frequently than every 4 hours [X]b) Cardiac or respiratory monitoring beyond the scope (eg, over 24 hours) of observation care [ ]c) Pulmonary artery catheter monitoring [ ]d) Suspected compartment syndrome(97) (98) [ ]e) Cerebral bleeding, hydrocephalus, or vasospasm monitoring [ ]f) Increased intracranial pressure or cerebral edema monitoring [ ]g) monitoring [ ]XXVIII. Treatment requiring inpatient care; examples include: [ ]a) IV fluid to replace significant ongoing losses (greater than 3 L/m2 per day)(53) [ ]b) High concentration oxygen (greater than 40%)(33)(99)(100) [ ]c) Frequent respiratory therapy (more frequently than every 4 hours) to maintain airflow rates greater than 60% of baseline(33)(99)(100) [ ]d) Epidural analgesia(87) [ ]e) IV anticoagulation, vasoactive, or antiarrhythmic medication(19 )(23) [ ]f) Acute thrombolytics (generally require 24 hours of observation )(101)(102) [ ]XXIX. Emergency procedures needed; examples include: [ ]a) Emergency inpatient surgery [ ]b) Temporary pacemaker placement(103) [ ]c) Chest tube placement with active evacuation (eg, suction, drainage)(104) [ ]d) Emergent cardioversion(105) [ ]e) Emergent cardiac or vascular procedures (eg, cardiac catheterization, angioplasty) (17)(18) [ ]f) Emergent dialysis access placement and institution(10)(106) [ ]g) Emergent pericardiocentesis(107) [ ]h) Emergent plasmapheresis or leukapheresis(83) [ ]i) Emergent tracheostomy The original [employer] content created by [employer] has been revised. The portions of the content which have been revised are identified through the use of italic text or in bold, and [facility] has neither reviewed nor approved the modified material. All other unmodified content is copyright [employer]. Please see references footnoted in the original [employer] includes the [email or web address] edition 2016 Admission Criteria Met?: Yes EMMA DALE Oct 08, 2016 02:15
[2016-10-08 04:00] VITALS: BP 142/65
[2016-10-08 04:56] LABS: BASO % 1 % (0-3); EOS % 9 % (0-3); LYMPH # 2.5 x10^3/uL (1.0-4.8); LYMPH % 34 % (24-48); MEAN CORPUSCULAR HEMOGLOBIN 32 pg (25-35); MEAN CORPUSCULAR HGB CONC 33 g/dL (31-37); MEAN CORPUSCULAR VOLUME 95 fL (79-100); MONO % 14 % (0-9); NEUT % 43 % (31-73); PLATELET COUNT 142 x10^3/uL (140-400); RED BLOOD COUNT 3.14 x10^6/uL (3.50-5.40); RED CELL DISTRIBUTION WIDTH 15.5 % (11.5-14.5); WHITE BLOOD COUNT 7.4 x10^3/uL (4.0-11.0)
[2016-10-08 05:01] LABS: CALCIUM 8.5 mg/dL (8.5-10.1); CREATININE 1.1 mg/dL (0.6-1.0)
--- NOTE | 2016-10-08 06:22 | EKG ---
[facility] [address] [place] [id number] Test Date: 2016-10-07 Test Time: 19:23:51 Pat Name: JOHNNY GÓMEZ Department: Room: [facility] Gender: F Mechanical Systems Control Engineer: : [id number] Requested By: LEONARDO SARKAR Order Number: [id number] Reading MD: Shahzad Richardson Measurements Intervals [place] Rate: 75 P: 53 [place]: 132 QRS: 38 QRSD: 80 T: 49 QT: 408 QTc: 458 Interpretive Statements SINUS RHYTHM NORMAL ECG RI6.01 Unconfirmed report No previous ECG available for comparison Electronically Signed On 10-15-2016 10:23:47 INSPECTOR TYPE by Shahzad Richardson
[2016-10-08 08:00] VITALS: BP 139/61
--- NOTE | 2016-10-08 08:06 | RAD ---
Portable chest, 10/07/2016: History: Left-sided chest pain Comparison is made to a study from 09/03/2016. The heart size is normal. There is calcific plaquing and tortuosity of the thoracic aorta. There are prominent pulmonary markings probably due to fibrosis. No pulmonary consolidation is seen. There is no evidence of pleural fluid. The bony structures are demineralized. IMPRESSION: 1. Chronic prominence of the pulmonary markings compatible with fibrosis. 2. No new cardiopulmonary is detected.
[2016-10-08] MEDS: IV NORMAL SALINE 1000ML BAG 1,000 ML IV SCH (09:18)
--- NOTE | 2016-10-08 10:04 | PDOC2 ---
ASHIA GRADY DISINTEGRATOR 10/08/16 1004: CARDIAC CONSULT DATE OF CONSULT Date of Consult DATE: 10/08/16 TIME: 09:55 REASON FOR CONSULT Reason for Consult: angina REFERRING PHYSICIAN Referring Physician: Dr. Arora SOURCE Source: Chart review, Patient HISTORY OF PRESENT ILLNESS HISTORY OF PRESENT ILLNESS This is a 80 yo female who presented with complaints of chest pain. Difficult to obtain HPI as patient is quite upset and tearful at this time. Patient reports previous PCP, who she no longer follows with, came to round this morning and it was very upsetting because "he failed me after 17 years". Patient reports pain began yesterday afternoon while she was sitting watching television. Located in her left chest. describes as pressure. Pain felt very similar to "two previous heart attacks". Pain radiated up to the jaw. Associated with nausea, shortness of breath, and diaphoresis. Denies any dizziness, orthopnea, LE edema, or recent illness or fevers. EMS was called. Pain relieved with nitro after about 30 mins. Recently diagnosed with multiple myeloma and follows with Dr. Echevarria. Reports previous heart cath with angioplasty , but is not aware of any stent placement. Most recent stress test over 5 years ago. PAST MEDICAL HISTORY Cardiovascular: AFIB, CAD, HTN, [place] Pulmonary: Asthma, COPD CENTRAL NERVOUS SYSTEM: Periperal neuropathy GI: Diverticulosis, GERD, Peptic Ulcer disease Heme/Onc: Anemia NOS, Other (DVT) Hepatobiliary: No pertinent hx Psych: Anxiety, Depression Musculoskeletal: Osteoarthritis Rheumatologic: No pertinent hx Infectious disease: No pertinent hx ENT: No pertinent hx Renal/: No pertinent hx Endocrine: No pertinent hx Dermatology: No pertinent hx PAST SURGICAL HISTORY Past Surgical History: Appendectomy, Cataract Removal, Hysterectomy, Other ( back sx) FAMILY HISTORY Family History: Cancer, Diabetes, Heart Disease SOCIAL HISTORY Smoke: Quit (6 months ago) ALCOHOL: none Drugs: None Lives: Alone CURRENT MEDICATIONS CURRENT MEDICATIONS Current Medications Medications (Trade) Dose Ordered Sig/Tianna Route PRN Reason Start Time Stop Time Status Last Admin Dose Admin Sodium Chloride (Iv Sodium Chloride 0.9% 1000ml Bag) 1,000 ml @ 80 mls/hr [id number] IV 10/07/16 20:48 10/08/16 20:47 10/07/16 21:30 Albuterol/ Ipratropium (Duoneb) 3 ml RTQID PRN NEB SHORTNESS OF BREATH 10/07/16 21:00 10/08/16 20:59 10/08/16 09:14 ALLERGIES ALLERGIES: Coded Allergies: No Known Drug Allergies (Unverified , 11/29/14) ROS Review of System 14 point ROS conducted with pertinent hx noted above in HPI PHYSICAL EXAM General: Alert, Oriented X3, Cooperative, No acute distress, Other (anxious, tearful) HEENT: Atraumatic, Mucous membr. moist/pink Lungs: Clear to auscultation, Normal air movement Heart: Regular rate, Normal S1, Normal S2 Abdomen: Soft, No tenderness Extremities: Other (refused to have feel assessed ) Skin: No breakdown Neuro: Normal speech, Sensation intact Psych/Mental Status: Mental status NL, Other (tearful) MUSCULOSKELETAL: Osteoarthritic changes both hands VITALS VITALS Vital Signs Date Time Temp Pulse Resp B/P Pulse Ox O2 Delivery O2 Flow Rate FiO2 10/08/16 09:14 95 Room Air 10/08/16 08:00 97.9 69 16 139/61 97.9 LABS Lab: Laboratory Tests Test 10/07/16 19:50 10/08/16 03:00 10/08/16 04:54 10/08/16 08:45 White Blood Count 7.6x10^3/uL (4.0-11.0) 7.4x10^3/uL (4.0-11.0) Red Blood Count 3.14x10^6/uL (3.50-5.40) 3.14x10^6/uL (3.50-5.40) Hemoglobin 9.9g/dL (12.0-15.5) 10.0g/dL (12.0-15.5) Hematocrit 29.6% (36.0-47.0) 30.0% (36.0-47.0) Mean Corpuscular Volume 94fL (79-100) 95fL (79-100) Mean Corpuscular Hemoglobin 32pg (25-35) 32pg (25-35) Mean Corpuscular Hemoglobin Concent 33g/dL (31-37) 33g/dL (31-37) Red Cell Distribution Width 15.7% (11.5-14.5) 15.5% (11.5-14.5) Platelet Count 141x10^3/uL (140-400) 142x10^3/uL (140-400) Neutrophils (%) (Auto) 47% (31-73) 43% (31-73) Lymphocytes (%) (Auto) 31% (24-48) 34% (24-48) Monocytes (%) (Auto) 16% (0-9) 14% (0-9) Eosinophils (%) (Auto) 6% (0-3) 9% (0-3) Basophils (%) (Auto) 0% (0-3) 1% (0-3) Neutrophils # (Auto) 3.6x10^3uL (1.8-7.7) 3.2x10^3uL (1.8-7.7) Lymphocytes # (Auto) 2.3x10^3/uL (1.0-4.8) 2.5x10^3/uL (1.0-4.8) Monocytes # (Auto) 1.2x10^3/uL (0.0-1.1) 1.0x10^3/uL (0.0-1.1) Eosinophils # (Auto) 0.5x10^3/uL (0.0-0.7) 0.6x10^3/uL (0.0-0.7) Basophils # (Auto) 0.0x10^3/uL (0.0-0.2) 0.0x10^3/uL (0.0-0.2) Prothrombin Time 15.0SEC (11.7-14.0) Prothromb Time International Ratio 1.3 (0.8-1.1) Activated Partial Thromboplast Time 33SEC (24-38) Sodium Level 139mmol/L (136-145) 141mmol/L (136-145) Potassium Level 3.8mmol/L (3.5-5.1) 4.0mmol/L (3.5-5.1) Chloride Level 100mmol/L (98-107) 103mmol/L (98-107) Carbon Dioxide Level 25mmol/L (21-32) 26mmol/L (21-32) Anion Gap 14 (6-14) 12 (6-14) Blood Urea Nitrogen 43mg/dL (7-20) 39mg/dL (7-20) Creatinine 1.3mg/dL (0.6-1.0) 1.1mg/dL (0.6-1.0) Estimated GFR (Cockcroft-Gault) 39.6 48.0 Glucose Level 132mg/dL (70-99) 97mg/dL (70-99) Calcium Level 8.5mg/dL (8.5-10.1) 8.5mg/dL (8.5-10.1) Total Bilirubin 0.3mg/dL (0.2-1.0) Direct Bilirubin 0.1mg/dL (0.0-0.2) Aspartate Amino Transf (AST/SGOT) 23U/L (15-37) Alanine Aminotransferase (ALT/SGPT) 29U/L (14-59) Alkaline Phosphatase 40U/L (46-116) Troponin I Quantitative < 0.017ng/mL (0.000-0.055) < 0.017ng/mL (0.000-0.055) < 0.017ng/mL (0.000-0.055) ME-Rsv-U-Type Natriuretic Peptide 477pg/mL (0-449) Total Protein 8.3g/dL (6.4-8.2) Albumin 2.5g/dL (3.4-5.0) Lipase 53U/L (73-393) Glucose (Fingerstick) 90mg/dL (70-99) ASSESSMENT/PLAN ASSESSMENT/PLAN 1. Chest pain, with typical and atypical features. troponin series normal- AMI ruled out. ASA. check lipids. remote angioplasty (1991) pain possibly GI in nature but given cardiac risk factors, will proceed with MPI to r/o ischemia 2. HTN controlled continue with current therapy 3. h/o AFIB maintaining SR with controlled rate continue oral cardizem ASA for stroke prevention 4. PUD/ GERD per PCP 5. multiple myeloma follows with Dr. Echevarria 6. anxiety/depression Problems: KELLY BUENROSTRO MD 10/08/162046: CARDIAC CONSULT ALLERGIES ALLERGIES: Coded Allergies: No Known Drug Allergies (Unverified , 11/29/14) ASSESSMENT/PLAN ASSESSMENT/PLAN Patient seen and examined. Agree with MANAGER CULINARY's assessment and plan. CP with atypical features and most probably GI etiology. CA ruled out. Lexiscan MPI did not show any significant ischemia. LV function normal. No further cardiac workup is indicated at this time. Thank you for your consultation. Problems: ASHIA GRADY APRN Oct 08, 2016 10:04 KELLY BUENROSTRO MD Oct 08, 2016 20:47
--- NOTE | 2016-10-08 10:35 | PDOC1 ---
History and Physical Past Medical History Cardiovascular: AFIB, CAD, HTN, [place] Pulmonary: Asthma, COPD CENTRAL NERVOUS SYSTEM: Periperal neuropathy GI: Diverticulosis, GERD, Peptic Ulcer disease Heme/Onc: Other (DVT) Psych: Anxiety, Depression Past Surgical History Past Surgical History: Appendectomy, Cataract Removal, Hysterectomy, Other ( back sx) Family History Family History: Cancer, Diabetes, Heart Disease Social History Smoke: No ALCOHOL: none Current Problem List Problem List Problems Medical Problems: (1) CAD (coronary artery disease) Status: Acute (2) COPD (chronic obstructive pulmonary disease) Status: Acute (3) Hypertension Status: Acute (4) Unstable angina Status: Acute Current Medications Current Medications Current Medications Medications (Trade) Dose Ordered Sig/Tianna Start Time Stop Time Status Last Admin Dose Admin Acetaminophen (Tylenol) 650 mg PRN Q4HRS PRN 10/07/16 21:00 10/08/16 20:59 Albuterol/ Ipratropium (Duoneb) 3 ml RTQID PRN 10/07/16 21:00 10/08/16 20:59 10/08/16 09:14 3 ML Fentanyl Citrate 50 mcg 50 mcg PRN Q1HR PRN 10/07/16 21:00 10/08/16 20:59 Nitroglycerin (Nitrostat) 0.4 mg PRN Q5MIN PRN 10/07/16 21:00 10/08/16 20:59 Ondansetron HCl (Zofran) 4 mg PRN Q8HRS PRN 10/07/16 21:00 10/08/16 20:59 Sodium Chloride (Iv Sodium Chloride 0.9% 1000ml Bag) 1,000 ml @ 80 mls/hr [id number] 10/07/16 20:48 10/08/16 20:47 10/07/16 21:30 80 MLS/HR Allergies Allergies Allergies Coded Allergies Type Severity Reaction Last Updated Verified No Known Drug Allergies 11/29/14 No ROS Review of System CONSTITUTIONAL: No fever or chills EYES: No recent changes SKIN: No rash or itching CARDIOVASCULAR: chest pain, no syncope, palpitations, or edema RESPIRATORY: No SOB or cough GASTROINTESTINAL: No nausea, vomiting or abdominal pain NEUROLOGICAL: No headaches or weakness ENDOCRINE: No cold or heat intolerance GENITOURINARY: No urgency or frequency of urination MUSCULOSKELETAL: No back pain or joint pain LYMPHATICS: No enlarged lymph nodes PSYCHIATRIC: anxiety Physical Exam Physical Exam GEN.: No apparent distress. Alert and oriented. HEENT: Head is normocephalic, atraumatic NECK: Supple. no jvd LUNGS: Clear to auscultation.normal aiflow HEART: RRR, S1, S2 present. Peripheral pulses intact ABDOMEN: Soft, nontender. Positive bowel sounds. EXTREMITIES: Without any cyanosis. NEUROLOGIC: Normal speech, normal tone PSYCHIATRIC: Normal affect, normal mood. SKIN: No visible skin lesion. Vitals Vitals Vital Signs Date Time Temp Pulse Resp B/P Pulse Ox O2 Delivery O2 Flow Rate FiO2 10/08/16 09:14 95 Room Air 10/08/16 08:00 97.9 69 16 139/61 97.9 Labs Labs Laboratory Tests Test 10/07/16 19:50 10/08/16 03:00 10/08/16 04:54 10/08/16 08:45 White Blood Count 7.6x10^3/uL (4.0-11.0) 7.4x10^3/uL (4.0-11.0) Red Blood Count 3.14x10^6/uL (3.50-5.40) 3.14x10^6/uL (3.50-5.40) Hemoglobin 9.9g/dL (12.0-15.5) 10.0g/dL (12.0-15.5) Hematocrit 29.6% (36.0-47.0) 30.0% (36.0-47.0) Mean Corpuscular Volume 94fL (79-100) 95fL (79-100) Mean Corpuscular Hemoglobin 32pg (25-35) 32pg (25-35) Mean Corpuscular Hemoglobin Concent 33g/dL (31-37) 33g/dL (31-37) Red Cell Distribution Width 15.7% (11.5-14.5) 15.5% (11.5-14.5) Platelet Count 141x10^3/uL (140-400) 142x10^3/uL (140-400) Neutrophils (%) (Auto) 47% (31-73) 43% (31-73) Lymphocytes (%) (Auto) 31% (24-48) 34% (24-48) Monocytes (%) (Auto) 16% (0-9) 14% (0-9) Eosinophils (%) (Auto) 6% (0-3) 9% (0-3) Basophils (%) (Auto) 0% (0-3) 1% (0-3) Neutrophils # (Auto) 3.6x10^3uL (1.8-7.7) 3.2x10^3uL (1.8-7.7) Lymphocytes # (Auto) 2.3x10^3/uL (1.0-4.8) 2.5x10^3/uL (1.0-4.8) Monocytes # (Auto) 1.2x10^3/uL (0.0-1.1) 1.0x10^3/uL (0.0-1.1) Eosinophils # (Auto) 0.5x10^3/uL (0.0-0.7) 0.6x10^3/uL (0.0-0.7) Basophils # (Auto) 0.0x10^3/uL (0.0-0.2) 0.0x10^3/uL (0.0-0.2) Prothrombin Time 15.0SEC (11.7-14.0) Prothromb Time International Ratio 1.3 (0.8-1.1) Activated Partial Thromboplast Time 33SEC (24-38) Sodium Level 139mmol/L (136-145) 141mmol/L (136-145) Potassium Level 3.8mmol/L (3.5-5.1) 4.0mmol/L (3.5-5.1) Chloride Level 100mmol/L (98-107) 103mmol/L (98-107) Carbon Dioxide Level 25mmol/L (21-32) 26mmol/L (21-32) Anion Gap 14 (6-14) 12 (6-14) Blood Urea Nitrogen 43mg/dL (7-20) 39mg/dL (7-20) Creatinine 1.3mg/dL (0.6-1.0) 1.1mg/dL (0.6-1.0) Estimated GFR (Cockcroft-Gault) 39.6 48.0 Glucose Level 132mg/dL (70-99) 97mg/dL (70-99) Calcium Level 8.5mg/dL (8.5-10.1) 8.5mg/dL (8.5-10.1) Total Bilirubin 0.3mg/dL (0.2-1.0) Direct Bilirubin 0.1mg/dL (0.0-0.2) Aspartate Amino Transf (AST/SGOT) 23U/L (15-37) Alanine Aminotransferase (ALT/SGPT) 29U/L (14-59) Alkaline Phosphatase 40U/L (46-116) Troponin I Quantitative < 0.017ng/mL (0.000-0.055) < 0.017ng/mL (0.000-0.055) < 0.017ng/mL (0.000-0.055) DG-Tjr-J-Type Natriuretic Peptide 477pg/mL (0-449) Total Protein 8.3g/dL (6.4-8.2) Albumin 2.5g/dL (3.4-5.0) Lipase 53U/L (73-393) Glucose (Fingerstick) 90mg/dL (70-99) Laboratory Tests Test 10/07/16 19:50 10/08/16 03:00 10/08/16 04:54 10/08/16 08:45 White Blood Count 7.6x10^3/uL (4.0-11.0) 7.4x10^3/uL (4.0-11.0) Red Blood Count 3.14x10^6/uL (3.50-5.40) 3.14x10^6/uL (3.50-5.40) Hemoglobin 9.9g/dL (12.0-15.5) 10.0g/dL (12.0-15.5) Hematocrit 29.6% (36.0-47.0) 30.0% (36.0-47.0) Mean Corpuscular Volume 94fL (79-100) 95fL (79-100) Mean Corpuscular Hemoglobin 32pg (25-35) 32pg (25-35) Mean Corpuscular Hemoglobin Concent 33g/dL (31-37) 33g/dL (31-37) Red Cell Distribution Width 15.7% (11.5-14.5) 15.5% (11.5-14.5) Platelet Count 141x10^3/uL (140-400) 142x10^3/uL (140-400) Neutrophils (%) (Auto) 47% (31-73) 43% (31-73) Lymphocytes (%) (Auto) 31% (24-48) 34% (24-48) Monocytes (%) (Auto) 16% (0-9) 14% (0-9) Eosinophils (%) (Auto) 6% (0-3) 9% (0-3) Basophils (%) (Auto) 0% (0-3) 1% (0-3) Neutrophils # (Auto) 3.6x10^3uL (1.8-7.7) 3.2x10^3uL (1.8-7.7) Lymphocytes # (Auto) 2.3x10^3/uL (1.0-4.8) 2.5x10^3/uL (1.0-4.8) Monocytes # (Auto) 1.2x10^3/uL (0.0-1.1) 1.0x10^3/uL (0.0-1.1) Eosinophils # (Auto) 0.5x10^3/uL (0.0-0.7) 0.6x10^3/uL (0.0-0.7) Basophils # (Auto) 0.0x10^3/uL (0.0-0.2) 0.0x10^3/uL (0.0-0.2) Prothrombin Time 15.0SEC (11.7-14.0) Prothromb Time International Ratio 1.3 (0.8-1.1) Activated Partial Thromboplast Time 33SEC (24-38) Sodium Level 139mmol/L (136-145) 141mmol/L (136-145) Potassium Level 3.8mmol/L (3.5-5.1) 4.0mmol/L (3.5-5.1) Chloride Level 100mmol/L (98-107) 103mmol/L (98-107) Carbon Dioxide Level 25mmol/L (21-32) 26mmol/L (21-32) Anion Gap 14 (6-14) 12 (6-14) Blood Urea Nitrogen 43mg/dL (7-20) 39mg/dL (7-20) Creatinine 1.3mg/dL (0.6-1.0) 1.1mg/dL (0.6-1.0) Estimated GFR (Cockcroft-Gault) 39.6 48.0 Glucose Level 132mg/dL (70-99) 97mg/dL (70-99) Calcium Level 8.5mg/dL (8.5-10.1) 8.5mg/dL (8.5-10.1) Total Bilirubin 0.3mg/dL (0.2-1.0) Direct Bilirubin 0.1mg/dL (0.0-0.2) Aspartate Amino Transf (AST/SGOT) 23U/L (15-37) Alanine Aminotransferase (ALT/SGPT) 29U/L (14-59) Alkaline Phosphatase 40U/L (46-116) Troponin I Quantitative < 0.017ng/mL (0.000-0.055) < 0.017ng/mL (0.000-0.055) < 0.017ng/mL (0.000-0.055) JO-Qwg-Q-Type Natriuretic Peptide 477pg/mL (0-449) Total Protein 8.3g/dL (6.4-8.2) Albumin 2.5g/dL (3.4-5.0) Lipase 53U/L (73-393) Glucose (Fingerstick) 90mg/dL (70-99) VTE Prophylaxis Ordered VTE Prophylaxis Devices: No VTE Pharmacological Prophylaxi: No NOEMI SEGAL MD Oct 08, 2016 10:35
[2016-10-08] MEDS ORDERED: ALBUTEROL SULFATE 2.5 MG/3 ML NEBU. NEB PRN (10:45)
[2016-10-08] MEDS ORDERED: ACETAMINOPHEN 325 MG TABLET. PO PRN (10:45)
[2016-10-08] MEDS ORDERED: hydrALAZINE 20 MG/ML VIAL. IVP PRN (10:45)
[2016-10-08] MEDS ORDERED: HYDROCODONE/APAP 5/325MG TABLET. PO PRN (10:45)
[2016-10-08] MEDS ORDERED: ONDANSETRON PF 4 MG/2 ML VIAL. IV PRN (10:45)
[2016-10-08 11:29] LABS: CHOLESTEROL/HDL RATIO 2.5
[2016-10-08] MEDS ORDERED: DILTIAZEM HCL 180 MG CAP.ER.24H PO SCH (11:30)
[2016-10-08 12:00] VITALS: BP 119/55
[2016-10-08] MEDS ORDERED: ASPIRIN ENTERIC COATED 81 MG TABLET.DR. PO SCH (12:00)
[2016-10-08] MEDS ORDERED: REGADENOSON 0.4 MG/5 ML DISP.SYRIN. IV ONE (12:30)
--- NOTE | 2016-10-08 13:02 | PDOC ---
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 Ok to DC from heme perspective. DEMETRIUS HASNON DO Oct 08, 2016 13:02
[2016-10-08] MEDS ORDERED: ALPRAZOLAM 0.25 MG TABLET PO PRN (13:45)
--- NOTE | 2016-10-08 15:39 | RAD ---
APPROVED REPORT Test Type: Pharmacological Stress Nurse/Tech: Maya Bloom R.N. Test Indications: chest pain Cardiac History: cad, copd, htn, smoker Medications: see ehr Medical History: see ehr Resting ECG: sr Resting Heart Rate: 77 bpm Resting Blood Pressure: 139/48mmHg Pretest Chest Pain: No chest pain Nurse/Tech Notes lungs cta, heart tones regular, good radial pulse Consent: The procedure was explained to the patient in lay terms. Informed consent was witnessed. Lars eout was entered into Getting-in. History and Stress Test performed by Maya Bloom R.N. Pharm. Details Pharmacologic stress testing was performed using 0.4mg per 5ml of regadenoson given intravenously ove r 7-10 seconds. Stress Symptoms No chest pain or symptoms. Pt c/o headache and leg pain POST EXERCISE Reason for Termination: Infusion complete Target HR: No Max HR: 95 bpm Max Blood Pressure: 148/51mmHg Chest Pain: No. Arrhythmia: No. ST Change: No. INTERPRETATION Stress EKG Conclusion: Baseline EKG showed sinus rhythm. No ischemic changes at peak stress. No arr hythmias. Imaging Protocol IMAGE PROTOCOL: Rest TI-201/Stress Tc-99m Rest: Stress: Viability: Radiopharm.Tc99m EmuywzzzpMc64e Sestamibi Dose12.2mCi 34.8mCi Duration 15min. 10min. Img Date 10/08/2016 10/08/2016 Inj-Img Zqjz74hgs. 60min. Rest Admin Site:IV - Right WristAdministrator:FLAKO Morejon Stress Admin Site: IV - Right WristAdministrator: FLAKO Morejon STRESS DATA End Diast. Vol.72.0mlAv. Heart Rate72.0bpm End Syst. Vol.18.0mlCO Index BSA0.0L/min Myocardial Dnap249.0gEject. Tfaqmtcw15.0% Stress Rates Pk. Fill Rate3.08EDV/secLVtime Pk. Fill 244.76msec Pk. Empty Rate4.75ESV/secLVtime Pk. Wdpaz635.45msec 08/14 Pk. Fill1.67EDV/sec Stress Scores Regional WT0.00Summed WT0.00 Regional WM0.00Summed WM1.00 Study quality was good. Left Ventricular size was Normal at Rest and Stress. Lung uptake was Normal. Left Ventricular ejection fraction is 75%. The rest and stress images show normal perfusion, normal contraction and thickening. LV Perf. Quant 17 Seg. SSS0.00 17 Seg. SRS0.00 17 Seg. SDS0.00 Stress Defect Extent (% LAD)0.00Rest Defect Extent (% LAD)0.00Rev. Defect Extent (% LAD)0.00 Stress Defect Extent (% LCX) 0.00Rest Defect Extent (% LCX)0.00Rev. Defect Extent (% LCX)0.00 Stress Defect Extent (% RCA)0.00Rest Defect Extent (% RCA)0.00Rev. Defect Extent (% RCA)0.00 Stress Defect Extent (% JEFF)0.00Rest Defect Extent (% JEFF)0.00Rev. Defect Extent (% JEFF)0.00 Conclusion 1. Regadenoson cardioisotope stress test did not show any evidence of ischemia or infarct. 2. Normal left ventricular systolic function with ejection fraction calculated at 75%. 3. Low risk for cardiac events.
[2016-10-08] MEDS ORDERED: TRAMADOL 50 MG TABLET. PO PRN (15:45)
[2016-10-08] MEDS ORDERED: DEXA4TAB PO (15:59)
[2016-10-08 16:00] VITALS: BP 107/46
[2016-10-08] MEDS ORDERED: VENLAFAXINE 50 MG TABLET. PO SCH (16:15)
[2016-10-08] MEDS ORDERED: POTASSIUM CHLORIDE 10 MEQ TABLET.ER. PO SCH (16:30)
[2016-10-08] MEDS ORDERED: rOPINIRole 1 MG TABLET. PO SCH (16:30)
[2016-10-08] MEDS ORDERED: CHOLECALCIFEROL (VITAMIN D3) 1,000 UNIT TABLET PO SCH (16:30)
[2016-10-08] MEDS ORDERED: FUROSEMIDE 20 MG TABLET PO SCH (16:30)
[2016-10-08] MEDS ORDERED: CYANOCOBALAMIN (VITAMIN B-12) 1,000 MCG TABLET. PO SCH (16:30)
[2016-10-08] MEDS ORDERED: DEXAMETHASONE 4 MG TABLET PO SCH (16:30)
--- NOTE | 2016-10-08 16:44 | CARD ---
APPROVED REPORT EXAM: Two-dimensional and M-mode echocardiogram with Doppler and color Doppler. Other Information Quality : Good INDICATION Chest Pain 2D DIMENSIONS RVDd2.4 (2.9-3.5cm)Left Atrium(2D)2.9 (1.6-4.0cm) IVSd0.8 (0.7-1.1cm)Aortic Root(2D)2.5 (2.0-3.7cm) LVDd4.3 (3.9-5.9cm)LVOT Diameter1.9 (1.8-2.4cm) PWd0.8 (0.7-1.1cm)LVDs2.5 (2.5-4.0cm) FS (%) 30.0 %SV57.7 ml LVEF(%)60.0 (>50%) Aortic Valve AoV Peak Jason.168.7cm/sAoV VTI34.7cm AO Peak GR.11.4mmHgLVOT Peak Jason.120.3cm/s LVOT VTI 24.01cmAO Mean GR.6mmHg NANCY (VMAX)1.33fh5DIR (VTI)1.90cm2 AI P 1/2 Btxt620vt Mitral Valve MV E Rhclzxul37.2cm/sMV DECEL GIDD544hi MV A Zwlgbyjb05.0cm/sMV RLD084xq E/A Ratio0.7MVA (PHT)2.10cm2 TDI E/Lateral E'5.6E/Medial E'9.8 Tricuspid Valve TR P. Ueqhxpfh736yr/sRAP CNSWUMGU0izQe TR Peak Gr.02krPtANIZ69rrMp Pulmonary Vein S1 Adwxuhbh34.0cm/sD2 Rkudzvfk63.2cm/s PVa offoxrme164znrr LEFT VENTRICLE The left ventricle is normal size. There is normal left ventricular wall thickness. The left ventricu lar systolic function is normal. The ejection fraction is estimated at 60%. There is normal LV segmen krystal wall motion. Transmitral Doppler flow pattern is Grade I-abnormal relaxation pattern. RIGHT VENTRICLE The right ventricle is normal size. The right ventricular systolic function is normal. ATRIA The left atrium size is normal. The right atrium size is normal. The interatrial septum is intact wit h no evidence for an atrial septal defect or patent foramen ovale as noted on 2-D or Doppler imaging. AORTIC VALVE The aortic valve is calcified but opens well. Doppler and Color Flow revealed mild to moderate aortic regurgitation. There is no significant aortic valvular stenosis. MITRAL VALVE The mitral valve is calcified but opens well. Mitral annular calcification is mild. There is no evide nce of mitral valve prolapse. There is no mitral valve stenosis. Doppler and Color-flow revealed trac e mitral regurgitation. TRICUSPID VALVE The tricuspid valve is normal in structure and function. Doppler and Color Flow revealed mild tricusp id regurgitation. There is mild pulmonary hypertension. The PA pressure was estimated at 39 mmHg. The re is no tricuspid valve stenosis. PULMONIC VALVE The pulmonary valve is normal in structure and function. Doppler and Color Flow revealed trace to mil d pulmonic valvular regurgitation. There is no pulmonic valvular stenosis. GREAT VESSELS The aortic root is normal in size. The ascending aorta is normal in size. The IVC is normal in size a nd collapses >50% with inspiration. PERICARDIAL EFFUSION There is no evidence of significant pericardial effusion. Critical Notification Critical Value: No <Conclusion> The left ventricular systolic function is normal. The ejection fraction is estimated at 60%. There is normal LV segmental wall motion. Transmitral Doppler flow pattern is Grade I-abnormal relaxation pattern. Mild to moderate aortic regurgitation. Trace mitral regurgitation. Mild tricuspid regurgitation. The PA pressure was estimated at 39 mmHg. There is no evidence of significant pericardial effusion.
[2016-10-08] MEDS ORDERED: NON FORMULARY ITEM (Albuterol Sulfate (Ventolin Hfa Inhaler) 2 PUFF) INH SCH (17:00)
--- NOTE | 2016-10-08 18:35 | SSS ---
ADMIT DATE: 10/08/2016 TIME: 10:00 a.m. CHIEF COMPLAINT: Chest pain. HISTORY OF PRESENT ILLNESS: A 80-year-old female patient with history of atrial fibrillation, coronary artery disease, hypertension, admitted to the hospital for chest pain. Initially, the patient was admitted to Dr. Hatch; however, the patient declined to see him and I will ask to see the patient. She was admitted to the hospital for chest pain evaluation and at the time of my examination, she was anxious and crying. It is very difficult to obtain history from the patient. She says her chest pain is similar to her previous heart attacks, described it as a pressure with radiation to jaw. Denies any other complaints such as palpitations, syncope or leg swellings. She has been diagnosed with multiple myeloma ____ and following with Dr. Wagner. PAST MEDICAL HISTORY AND REVIEW OF SYSTEMS: Please see my electronic H and P. LABORATORY FINDINGS: WBC 7.6, hemoglobin 9.9, MCV is 94, platelets 141. Chemistry: Sodium is 141, potassium 4.0, chloride is 103, carbon dioxide 26, gap is 12, BUN is 39, creatinine is 1.1. Troponin is less than 0.017 twice. Lipid panel within normal range. EKG could not able to personally review as per the ER report, no acute ST-T wave changes seen. ASSESSMENT AND PLAN: 1. Chest pain, needs to rule out acute coronary syndrome, most likely due to anxiety, severe. 2. Hypertension. 3. Prior history of atrial fibrillation. 4. Prior history of gastroesophageal reflux disease. 5. Multiple myeloma ____ to be treated. 6. Severe anxiety. BRIEF HOSPITAL COURSE: A 80-year-old female admitted to the hospital for chest pain. She was admitted to cardiac floor and seen by Cardiology and she had a nuclear stress test, which is negative for any ischemia and lab workup such as 3 sets of troponins were negative. Her symptoms improved with Xanax, it appears to be her chest pain is most likely due to severe anxiety, which got better with Xanax. She has been sent home in stable condition and recommended to follow up with primary care doctor for further evaluation of her chest pain. DISCHARGE PHYSICAL EXAMINATION: GENERAL: Alert, oriented x 3. HEART: S1, S2 present. LUNGS: Clear to auscultation. ABDOMEN: Soft, nontender, no organomegaly. EXTREMITIES: No edema. DISCHARGE DISPOSITION: Home. DISCHARGE CONDITION: Stable. DISCHARGE FOLLOWUP: With primary care doctor and Dr. Echevarria. Total time spent for H and P and discharge is 45 minutes. NOEMI SEGAL MD DR: PAT/salbador JOB#: [id number] / [id number] REGINO
[2016-10-08] MEDS ORDERED: IPRATRPIUM/ALBUTEROL 0.5/2.5MG 3 ML NEBU. NEB SCH (20:00)
[2016-10-08] MEDS ORDERED: NON FORMULARY ITEM (Ipratropium/Albuterol Sulfate (Combivent Respimat Inhal) 2 INH) IH SCH (21:00)
[2016-10-08] MEDS ORDERED: PREGABALIN 75 MG CAPSULE PO SCH (21:00)
[2016-10-08] MEDS ORDERED: NON FORMULARY ITEM (Salmeterol Xinafoate (Serevent Diskus) 50 MCG) IH SCH (21:00)
--- NOTE | 2016-10-09 03:05 | CONS ---
DATE OF CONSULTATION: 10/08/2016 REFERRING PROVIDER: Dr. Hatch. REASON FOR CONSULTATION: Myeloma. HISTORY OF PRESENT ILLNESS: Ms. Gore is a 80-year-old female whom I met recently in clinic and diagnosed with having IgA lambda multiple myeloma with 80-90% plasma cells seen on bone marrow biopsy. She, however, only has mild anemia with a hemoglobin of 11.7, mild renal insufficiency with a creatinine around 1.2. She has chronic neuropathy for several decades in her bilateral lower extremities of unclear etiology. Skeletal survey did not reveal any abnormalities. Bone marrow biopsy also did show iron deficiency and we had planned in the future to give her 1 dose of Injectafer. I am not really sure how symptomatic she is from this multiple myeloma. However, her family, especially wanted to be very aggressive in her care. We had just ordered Revlimid and dexamethasone. She actually has not started taking any of these medications yet. She did receive her dose of the Injectafer on 03/01/2016. She was admitted to the hospital with chest pain and shortness of breath, which has now resolved. Her cardiac markers have been unremarkable. PAST MEDICAL HISTORY: Chronic back pain for several years, thought to be due to a previous accident; heart disease; osteoporosis; chronic kidney disease; previous heart attack in 1991; chronic bilateral lower extremity neuropathy for several decades; depression; diverticulitis; COPD; multiple myeloma; iron deficiency. PAST SURGICAL HISTORY: Sigmoidectomy, appendectomy, hysterectomy, partial pancreatectomy for a benign tumor, PCI, esophageal dilation. FAMILY HISTORY: Mom, dad, brother and sister all had some heart disease. She had a brother who from an acute leukemia. A maternal aunt and uncle with unknown cancer, a brother who from an unknown cancer and another brother with lung cancer. SOCIAL HISTORY: She currently still smokes 1 pack a day and has for the last 65 years. She previously smoked 1 pack a day for 65 years, but is now using electronic cigarettes. No alcohol or drug use. She I believe lives alone, but does have very supportive children in town. ALLERGIES: No known drug allergies. CURRENT MEDICATIONS: Aspirin, diltiazem, albuterol, Zofran, hydralazine, Lortab, Tylenol, DuoNeb, nitroglycerin, fentanyl, Zofran. REVIEW OF SYSTEMS: Ten point review of systems completed and unremarkable. Her previous shortness of breath and chest pain have resolved. She does have her chronic back pain and lower extremity neuropathy as described above. PHYSICAL EXAMINATION: VITAL SIGNS: Temperature 98.1, pulse 77, respiratory rate 15, blood pressure 119/55, 92% O2 on room air. GENERAL: She is alert and oriented. She is not in any distress at this time. She appears frail at her baseline. HEENT: Extraocular muscles are intact. Sclerae are without icterus. Mucous membranes are moist. CARDIOVASCULAR: Heart is regular in rhythm and rate. LUNGS: Clear to auscultation bilaterally. ABDOMEN: Soft and nontender. EXTREMITIES: No edema. She does have exquisite tenderness to even very light touch of her bilateral lower extremities, which is chronic. NEUROLOGIC: No focal cranial deficit. IMAGING/LABORATORY DATA: CBC at her baseline with hemoglobin 10.0. WBC and platelet count are normal. CMP unremarkable. Troponins have been negative. Cholesterol profile revealed low levels of cholesterol. Chest x-ray was unremarkable. ASSESSMENT AND PLAN: The patient is a 80-year-old female with the following medical problems: 1. Recent diagnosis of IgA lambda multiple myeloma. She has actually not even started her treatment, which will consist of Revlimid/dexamethasone in the future. She is still waiting to receive the Revlimid pills from the specialty order pharmacy. We will plan followup as appropriate after she starts the medication. 2. Iron deficiency with absent iron stores on recent bone marrow biopsy. She did receive Injectafer on 03/01/2016. I will follow iron levels in the future. Thank you for alerting me of her admission. I do not think any of her hematology issues are contributing to her chest pain, which is now resolved. I will plan to see her in clinic as planned on 10/25/2015. From a hematology standpoint, she can be discharged at any time. DEMETRIUS HANSON DO DR: KIERRA/salbador JOB#: [id number] / [id number]
[2016-10-09] MEDS ORDERED: SUCRALFATE 1 GM TABLET. PO SCH (07:00)
[2016-10-09] MEDS ORDERED: CALCIUM CARBONATE 500 MG TABLET PO SCH (07:30)
== END 2016-10-08 18:09 | disposition home or self-care (01) | DRG 880 ==
LOC: ER 19:17 → 1 WEST ICU 20:45
PROVIDERS: ADMIT Internal Medicine; ATTEND Internal Medicine
DX: F41.9 Anxiety disorder, unspecified (principal); I25.110 Atherosclerotic heart disease of native coronary artery with unstable angina pectoris; C90.00 Multiple myeloma not having achieved remission; I24.9 Acute ischemic heart disease, unspecified; Z68.1 Body mass index [BMI] 19.9 or less, adult; I48.91 Unspecified atrial fibrillation; I10 Essential (primary) hypertension; K21.9 Gastro-esophageal reflux disease without esophagitis; D64.9 Anemia, unspecified; E61.1 Iron deficiency; F17.210 Nicotine dependence, cigarettes, uncomplicated; F32.9 Major depressive disorder, single episode, unspecified; G25.81 Restless legs syndrome; G62.9 Polyneuropathy, unspecified; J44.9 Chronic obstructive pulmonary disease, unspecified; J45.909 Unspecified asthma, uncomplicated; N28.9 Disorder of kidney and ureter, unspecified; I25.2 Old myocardial infarction; Z80.6 Family history of leukemia; Z83.3 Family history of diabetes mellitus; Z87.11 Personal history of peptic ulcer disease; Z90.49 Acquired absence of other specified parts of digestive tract; Z90.710 Acquired absence of both cervix and uterus
CPT/HCPCS: 36415; 71010; 78452; 80048; 80061; 80076; 82947; 83690; 83880; 84484; 85027; 85610; 85730; 87641; 93005; 93017; 93306; 94250; 94640; 94760; 96374; 96375; 96376; A9500; J2785; J7030; J7620; 99285-25